=== PATIENT | male | born 1980 | race Caucasian/White ===

== ENCOUNTER 2025-02-10 09:11 | Emergency (ER) | payer BC, OTHER ==
[2025-02-10] MEDS: Bupivacaine 0.25% 10 ML SDV INJECT ONE (09:44)
[2025-02-10] MEDS: Bacitracin Oint 1 GM U/D Packet TOP ONE (10:13)
== END 2025-02-10 10:29 | disposition home or self-care (01) ==
LOC: JP.ED 09:11
DX: S60.352A Superficial foreign body of left thumb, initial encounter (principal); Z79.899 Other long term (current) drug therapy; W29.8XXA Contact with other powered hand tools and household machinery, initial encounter; Y93.89 Activity, other specified; Y99.0 Civilian activity done for income or pay
CPT/HCPCS: 64450; 99283; J0665